=== PATIENT | female | born 1965 | race Caucasian/White ===

== ENCOUNTER → 2018-01-09 | Outpatient (CLI) | payer OTHER ==
[~2018-01-09] MED LIST: CALACE667G PO; CIPR500 PO; CRANBERRY250 MG PO; CYCL10 PO; ERGO400 PO; FISH1000 PO; GLUC500 PO; HYDCHL12.5 PO; LEVSOD50 PO; MECL25 PO; MULVITMIND PO; Metoprolol Succ25 MG PO; Multiple Vitam1 EACH PO; NAPR500 PO; PROM25 PO; Pyridium200 MG PO; RXPROM25 PO; Vitamin B Comple1 EA PO; Voltaren100 GM TP
== END | disposition home or self-care (01) ==
LOC: LAB 12:00 → LAB SHORT 12:00
PROVIDERS: Nurse Practitioner
DX: Z01.419 Encounter for gynecological examination (general) (routine) without abnormal findings (principal)
CPT/HCPCS: G0145